=== PATIENT | female | born 1945 | race Caucasian/White ===

== ENCOUNTER 2019-11-06 13:53 | Inpatient (IN) | payer MEDICARE ==
[~2019-11-06] VITALS: Ht 162.6 cm; Wt 59.9 kg
[~2019-11-06 13:53] MED LIST: AMLO5TAB9 PO; APIX5TAB PO; CARV25TA PO; DULA1.5P SQ; DULO60CA64 PO; FAMO20TA8 PO; GABA-531 PO; INSU300I3 SQ; METO25 PO; ROPI4TAB6 PO; SPIR25TA6 PO
[2019-11-06 14:39] LABS: BASOPHILS % (AUTO) 0.2 % (0.0-5.0); EOSINOPHILS % (AUTO) 0.1 % (0.0-8.0); HEMATOCRIT 48.8 % (36-48); LYMPHOCYTES % (AUTO) 7.1 % (21.0-51.0); MEAN CORPUSCULAR HEMOGLOBIN 27.1 pg (27.0-33.0); MEAN CORPUSCULAR HGB CONC 32.8 g/dL (32.0-36.0); MEAN CORPUSCULAR VOLUME 82.6 fL (79-99); NEUTROPHILS % (AUTO) 86.1 % (40.0-77.0); PLATELET COUNT (AUTO) 361 K/uL (130-400); RED BLOOD CELL COUNT(AUTO) 5.91 MIL/uL (4.00-5.50); RED CELL DISTRIBUTION WIDTH 18.3 % (11.0-15.5); WHITE BLOOD COUNT (AUTO) 17.5 K/uL (4.8-10.8)
[2019-11-06 14:49] LABS: INR 0.98 (0.85-1.15); PARTIAL THROMBOPLASTIN TIME 26.7 SEC (26.3-35.5); PROTHROMBIN TIME 10.3 SEC (9.6-11.6)
[2019-11-06 14:54] LABS: ALBUMIN 2.7 g/dL (3.5-5.0); BILIRUBIN,DIRECT 0.1 mg/dL (0.0-0.3); BILIRUBIN,TOTAL 0.6 mg/dL (0.2-1.0); CREATININE 2.3 mg/dL (0.5-1.5); POTASSIUM 5.5 mmol/L (3.5-5.1); TOTAL PROTEIN, SERUM 6.9 g/dL (6.0-8.3)
[2019-11-06] MEDS ORDERED: CEFTRIAXONE SODIUM 1 GM IV SCH (18:15)
[2019-11-06] MEDS ORDERED: ONDANSETRON HCL 4 MG/2 ML VIAL IV PRN (18:15)
[2019-11-06] MEDS: HEPARIN SODIUM 5000UNIT/ML 1ML VIAL SQ SCH (18:15)
[2019-11-06] MEDS ORDERED: HYDRALAZINE HCL 20 MG/ML VIAL IV PRN (18:15)
[2019-11-06] MEDS ORDERED: SODIUM POLYSTYRENE SULFONATE 15 GM/60 ML ML PO SCH (18:15)
[2019-11-06] MEDS ORDERED: FAMOTIDINE/PF 20 MG/2 ML VIAL IV SCH (21:00)
[2019-11-06] MEDS ORDERED: LORAZEPAM 2 MG/ML 1 ML VIAL ONE (21:18)
[2019-11-07] VITALS (7 sets, daily range): BP systolic 103–135; BP diastolic 43–79
[2019-11-07 00:35] LABS: APPEARANCE,URINE Turbid (CLEAR); BILIRUBIN,URINE Negative (NEGATIVE); COLOR,URINE Yellow (YELLOW); GLUCOSE, URINE (UA) Negative (NEGATIVE); KETONES,URINE Trace mg/dL (NEGATIVE); LEUKOCYTE ESTERASE ,URINE Moderate (NEGATIVE); NITRATE,URINE Negative (NEGATIVE); OCCULT BLOOD,URINE Moderate (NEGATIVE); PROTEIN,URINE POS 2+ mg/dL (NEGATIVE); UROBILINOGEN,URINE 0.2 mg/dL (0.2-1.0)
[2019-11-07 00:46] LABS: BACTERIA,URINE Few /HPF (None Seen); RBC,URINE 51-100 /HPF (0-1); SQUAMOUS EPITHELIAL CELL,UR Few /HPF (0-2); WBC,URINE Full Field /HPF (0-1); YEAST,URINE BUDDING Moderate /HPF (None Seen)
[2019-11-07] MEDS: MEROPENEM 500 MG VIAL IV SCH ×3 (00:46→17:26)
[2019-11-07] MEDS: SODIUM CHLORIDE 0.9% 1000ML 1,000 ML IV SCH ×3 (00:46→20:55)
[2019-11-07] MEDS ORDERED: GABA-533 PO (04:34)
[2019-11-07] MEDS ORDERED: B CO1CAP5 PO (04:34)
[2019-11-07] MEDS ORDERED: ONDA4TAB4 PO (04:34)
[2019-11-07] MEDS ORDERED: TYL3B PO (04:34)
[2019-11-07] MEDS ORDERED: ATOR10 PO (04:34)
[2019-11-07] MEDS: HEPARIN SODIUM 5000UNIT/ML 1ML VIAL SQ SCH (05:35)
[2019-11-07 05:48] LABS: BASOPHILS % (AUTO) 0.4 % (0.0-5.0); EOSINOPHILS % (AUTO) 1.3 % (0.0-8.0); HEMATOCRIT 46.8 % (36-48); MEAN CORPUSCULAR HEMOGLOBIN 26.9 pg (27.0-33.0); MEAN CORPUSCULAR HGB CONC 32.3 g/dL (32.0-36.0); MEAN CORPUSCULAR VOLUME 83.4 fL (79-99); MONOCYTES % (AUTO) 7.2 % (3.0-13.0); NEUTROPHILS % (AUTO) 76.4 % (40.0-77.0); PLATELET COUNT (AUTO) 262 K/uL (130-400); RED BLOOD CELL COUNT(AUTO) 5.61 MIL/uL (4.00-5.50); RED CELL DISTRIBUTION WIDTH 18.3 % (11.0-15.5); WHITE BLOOD COUNT (AUTO) 11.2 K/uL (4.8-10.8)
[2019-11-07 06:26] LABS: ALBUMIN 2.4 g/dL (3.5-5.0); BILIRUBIN,TOTAL 0.4 mg/dL (0.2-1.0); CREATININE 2.3 mg/dL (0.5-1.5); POTASSIUM 4.6 mmol/L (3.5-5.1); TOTAL PROTEIN, SERUM 6.8 g/dL (6.0-8.3)
--- NOTE | 2019-11-07 08:28 | NUR ---
APS - OPEN CASE Sw recd call from Eugene Hill, [phone], APS casewker for pt. Per APS, they had 2 reports called in on pt related to wound and colostomy care not being done and pt's new dx of dementia. APS reports pt lives alone and has provider and HH services thru [facility] in [place]. Eugene has spoke to pt's HH nurse Thierry Arnett and was updated on home situation. Per nurse, pt has been refusing wound care and colostomy care because pt stated it was too painful when done. Nurse reported that it had been twice prior to admission as pt allowed. HH nurse also reported that pt was not taking medication correctly or at all. Per APS, iJ is provider and APS has not made contact with her as of yet. At this time APS is aware that pt has daughter in [place] named Yuliana but do not have any other information. gave APS name and # of friend Jez, who may possibly be able to help with contacting daughter. APS to f/u with provider and friend and recontact SW or CM with any information found. APS requesting updates on DCP. Sw to follow nd assist as needed
--- NOTE | 2019-11-07 08:40 | NUR ---
[facility] consult Patient assessed as ordered. Colostomy bag intact. Patient has rash to perineum, buttocks, and thighs as well. [facility] recommendations submitted. Addendum: 11/07/19 at 0959 by PAXTON GOMEZ RN/ Amended: Links added.
[2019-11-07] MEDS: FAMOTIDINE/PF 20 MG/2 ML VIAL IV SCH (10:29)
--- NOTE | 2019-11-07 11:26 | NUR ---
DYSPHAGIA EVAL COMPLETED. -S/S OF ASPIRATION. RECOMMEND MECHANICAL SOFT/CHOPPED, THIN LIQUIDS; PILLS WHOLE WITH LIQUIDS. Addendum: 11/07/19 at 1127 by CONRADO LITTLE, [facility] [[email or web address] ST Amended: Links added.
[2019-11-07] MEDS: GABAPENTIN 100 MG CAPSULE PO SCH ×2 (17:26→20:11)
--- NOTE | 2019-11-07 17:37 | NUR ---
CM NOTE PATIENT SEEMS DROWSY AT THE MOMENT. FROM PREVIOUS ADMISSION, PATIENT LIVES ALONE, HAS PROVIDER FOR 3 HR DAILY, HAS [facility], ELECTRIC SCOOTER, WLK, CANE, SC, AND O2 CONCENTRATION THAT IS NOT IN USE AT THE MOMENT. SS AWARE OF APS OPEN CASE. PATIENT HAS DECLINED SNF BUT PER ED REPORTS, PATIENT NOT PROPERLY CARING FOR COLOSTOMY AT HOME. PER [facility], PATIENT DECLINES WOUND CARE AND COLOSTOMY CARE BECAUSE OF PAIN ISSUES. PATIENT DECLINES SNF PER LAST ADMISSION AND HAS EXPRESSED TO NURSING STAFF THAT SHE WANTS TO RETURN HOME. PENDING TO CALL DAUGHTER THAT IS OUT OF TOWN FOR ASSISTANCE.
[2019-11-07] MEDS: APIXABAN 5 MG TABLET PO SCH (20:10)
[2019-11-07] MEDS: METOPROLOL TARTRATE 25 MG TAB PO SCH (20:10)
[2019-11-07] MEDS: ATORVASTATIN CALCIUM 20 MG TABLET PO SCH (20:10)
[2019-11-07] MEDS ORDERED: CARVEDILOL 25 MG TABLET PO SCH (21:00)
[2019-11-08] MEDS: MEROPENEM 500 MG VIAL IV SCH ×3 (02:22→17:48)
[2019-11-08 03:13] VITALS: BP 104/52
[2019-11-08 05:02] LABS: BASOPHILS % (AUTO) 0.3 % (0.0-5.0); EOSINOPHILS % (AUTO) 1.1 % (0.0-8.0); HEMATOCRIT 40.3 % (36-48); LYMPHOCYTES % (AUTO) 15.2 % (21.0-51.0); MEAN CORPUSCULAR VOLUME 84.3 fL (79-99); MONOCYTES % (AUTO) 7.7 % (3.0-13.0); NEUTROPHILS % (AUTO) 75.2 % (40.0-77.0); PLATELET COUNT (AUTO) 252 K/uL (130-400); RED BLOOD CELL COUNT(AUTO) 4.78 MIL/uL (4.00-5.50); RED CELL DISTRIBUTION WIDTH 17.4 % (11.0-15.5); WHITE BLOOD COUNT (AUTO) 10.3 K/uL (4.8-10.8)
[2019-11-08 05:25] LABS: ALBUMIN 2.1 g/dL (3.5-5.0); BILIRUBIN,TOTAL 0.3 mg/dL (0.2-1.0); CREATININE 1.8 mg/dL (0.5-1.5); POTASSIUM 4.1 mmol/L (3.5-5.1); TOTAL PROTEIN, SERUM 5.3 g/dL (6.0-8.3)
[2019-11-08 08:00] VITALS: BP 106/50
[2019-11-08] MEDS: ROPINIROLE HCL 1 MG TABLET PO SCH (11:43)
[2019-11-08] MEDS: METOPROLOL TARTRATE 25 MG TAB PO SCH ×2 (11:43→19:36)
[2019-11-08] MEDS: AMLODIPINE BESYLATE 5 MG TAB PO SCH (11:43)
[2019-11-08] MEDS: GABAPENTIN 100 MG CAPSULE PO SCH ×3 (11:43→19:36)
[2019-11-08] MEDS: FAMOTIDINE/PF 20 MG/2 ML VIAL IV SCH (11:44)
[2019-11-08] MEDS: DULOXETINE HCL 30 MG CAP PO SCH (11:44)
[2019-11-08] MEDS: SPIRONOLACTONE 25 MG TAB PO SCH (11:44)
[2019-11-08] MEDS: APIXABAN 5 MG TABLET PO SCH ×2 (11:47→19:36)
[2019-11-08 12:00] VITALS: BP 115/65
--- NOTE | 2019-11-08 12:50 | NUR ---
Notified Dr. Simmons in person regarding consult for nephrology. Labs reviewed, Dr. 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 Notified Dr. Sexton of recommendation.
--- NOTE | 2019-11-08 14:11 | NUR ---
Called Dr. Attila Bustos for wound care consult for possible debridement. Per office voicemail, prompted to contact [phone] to notify of possible surgical consult. Called number, no answer. Unable to leave message on voicemail as full.
[2019-11-08] MEDS: SODIUM CHLORIDE 0.9% 1000ML 1,000 ML IV SCH (14:59)
[2019-11-08 15:25] VITALS: BP 117/77
--- NOTE | 2019-11-08 17:31 | NUR ---
CM NOTE PER DR. BRAR, WOULD RECOMMEND LONG-TERM CARE FOR PATIENT. PER MD, SPOKE WITH DAUGHTER IN [facility] AND AGREED TO PLACEMENT. PER MD, MIGHT HAVING DEMENTIA AND UNABLE TO MAKE DECISION FOR HERSELF. PENDING CARL
--- NOTE | 2019-11-08 17:45 | NUR ---
CM NOTE PATIENT SEEMS DROWSY AT THE MOMENT. FROM PREVIOUS ADMISSION, PATIENT LIVES ALONE, HAS PROVIDER FOR 3 HR DAILY, HAS [facility], ELECTRIC SCOOTER, WLK, CANE, SC, AND O2 CONCENTRATION THAT IS NOT IN USE AT THE MOMENT. SS AWARE OF APS OPEN CASE. PATIENT HAS DECLINED SNF BUT PER ED REPORTS, PATIENT NOT PROPERLY CARING FOR COLOSTOMY AT HOME. PER [facility] , PATIENT DECLINES WOUND CARE AND COLOSTOMY CARE BECAUSE OF PAIN ISSUES. PATIENT DECLINES SNF PER LAST ADMISSION AND HAS EXPRESSED TO NURSING STAFF THAT SHE WANTS TO RETURN HOME. PENDING TO CALL DAUGHTER THAT IS OUT OF TOWN FOR ASSISTANCE. Addendum: 11/08/19 at 1745 by JORDEN TOLBERT RN CM Amended: Links added.
[2019-11-08] MEDS: ACETAMINOPHEN 325 MG TAB PO PRN (19:35)
[2019-11-08] MEDS: ATORVASTATIN CALCIUM 20 MG TABLET PO SCH (19:36)
[2019-11-08 21:17] VITALS: BP 123/76
[2019-11-09 00:41] VITALS: BP 103/52
[2019-11-09] MEDS: MEROPENEM 500 MG VIAL IV SCH ×3 (02:25→18:37)
[2019-11-09] MEDS: SODIUM CHLORIDE 0.9% 1000ML 1,000 ML IV SCH ×2 (02:25→11:14)
[2019-11-09] MEDS: NYSTATIN 15 GM POWDER TP SCH (05:25)
[2019-11-09 05:52] VITALS: BP 101/50
[2019-11-09 06:09] LABS: BASOPHILS % (AUTO) 0.5 % (0.0-5.0); EOSINOPHILS % (AUTO) 5.4 % (0.0-8.0); LYMPHOCYTES % (AUTO) 19.1 % (21.0-51.0); MEAN CORPUSCULAR HGB CONC 31.7 g/dL (32.0-36.0); MEAN CORPUSCULAR VOLUME 85.1 fL (79-99); MONOCYTES % (AUTO) 7.4 % (3.0-13.0); NEUTROPHILS % (AUTO) 67.3 % (40.0-77.0); PLATELET COUNT (AUTO) 183 K/uL (130-400); RED BLOOD CELL COUNT(AUTO) 4.23 MIL/uL (4.00-5.50); RED CELL DISTRIBUTION WIDTH 17.5 % (11.0-15.5); WHITE BLOOD COUNT (AUTO) 6.5 K/uL (4.8-10.8)
[2019-11-09 06:43] LABS: ALBUMIN 1.9 g/dL (3.5-5.0); BILIRUBIN,TOTAL 0.3 mg/dL (0.2-1.0); CREATININE 1.5 mg/dL (0.5-1.5); POTASSIUM 3.7 mmol/L (3.5-5.1); TOTAL PROTEIN, SERUM 4.7 g/dL (6.0-8.3)
[2019-11-09 07:30] VITALS: BP 108/58
[2019-11-09] MEDS: SPIRONOLACTONE 25 MG TAB PO SCH (09:00)
[2019-11-09] MEDS: AMLODIPINE BESYLATE 5 MG TAB PO SCH (09:00)
[2019-11-09 11:00] VITALS: BP_SYST 107; BP_SYST 115; BP_DIAS 45; BP_DIAS 51
[2019-11-09] MEDS: METOPROLOL TARTRATE 25 MG TAB PO SCH ×2 (11:00→20:56)
[2019-11-09] MEDS: APIXABAN 5 MG TABLET PO SCH ×2 (11:00→20:57)
[2019-11-09] MEDS: GABAPENTIN 100 MG CAPSULE PO SCH ×3 (11:09→20:56)
[2019-11-09] MEDS: ROPINIROLE HCL 1 MG TABLET PO SCH (11:11)
[2019-11-09] MEDS: DULOXETINE HCL 30 MG CAP PO SCH (11:11)
[2019-11-09] MEDS: FAMOTIDINE/PF 20 MG/2 ML VIAL IV SCH (11:14)
[2019-11-09 16:00] VITALS: BP 105/46
--- NOTE | 2019-11-09 19:11 | NUR ---
cm note met with patient and discussed option snf level of care ,due to she lives alone, and multiple needs. pt states she is not willing to go to snf, states she is fine at home. she can ask her provider to come in more hours to assist. and states she has all her equipment at home. informed her that her care requires more care than she can do at home ostomy, care, and there is concern for her safety at home. states she does not want to go to snf, does not feel she needs it. will continue to follow pt.
[2019-11-09 20:25] VITALS: BP 120/54
[2019-11-09] MEDS: ATORVASTATIN CALCIUM 20 MG TABLET PO SCH (20:57)
[2019-11-10] VITALS (7 sets, daily range): BP systolic 100–141; BP diastolic 43–66
--- NOTE | 2019-11-10 02:00 | NUR ---
patient refuses to take merem antibiotic because she claims "it makes her sick" and makes her vomit. she will speak to the doctor about it in the am.
[2019-11-10] MEDS: MEROPENEM 500 MG VIAL IV SCH ×4 (02:11→18:15)
[2019-11-10] MEDS: NYSTATIN 15 GM POWDER TP SCH (04:29)
[2019-11-10] MEDS: SODIUM CHLORIDE 0.9% 1000ML 1,000 ML IV SCH ×2 (06:03→16:04)
[2019-11-10] MEDS: FAMOTIDINE/PF 20 MG/2 ML VIAL IV SCH (10:36)
[2019-11-10] MEDS: APIXABAN 5 MG TABLET PO SCH ×2 (10:36→20:18)
[2019-11-10] MEDS: AMLODIPINE BESYLATE 5 MG TAB PO SCH (10:36)
[2019-11-10] MEDS: SPIRONOLACTONE 25 MG TAB PO SCH (10:36)
[2019-11-10] MEDS: METOPROLOL TARTRATE 25 MG TAB PO SCH ×2 (10:36→20:18)
[2019-11-10] MEDS: DULOXETINE HCL 30 MG CAP PO SCH (10:36)
[2019-11-10] MEDS: ROPINIROLE HCL 1 MG TABLET PO SCH ×2 (10:37→10:38)
[2019-11-10] MEDS: GABAPENTIN 100 MG CAPSULE PO SCH ×3 (10:50→20:18)
--- NOTE | 2019-11-10 12:01 | NUR ---
NOTIFIED OF CONSULT, STATES HE WILL SEE PT. TODAY
--- NOTE | 2019-11-10 13:40 | NUR ---
CM NOTE PER DR. CAMPO, PATIENT AGREEABLE TO [facility]. PER PATIENT, HAS BEEN AT [facility] BEFORE AND THAT IS WHERE SHE WANTS TO GO. CARL VERBAL CONSENT GIVEN, CLINICALS AND [facility] FAXED AND RECEIVED. PENDING TO BE EVALUATED FOR WOUND VAC.
--- NOTE | 2019-11-10 13:58 | NUR ---
WITH WOUND CARE IN TO SEE PT. NOW.
--- NOTE | 2019-11-10 15:16 | NUR ---
1455- patient is busy w/ Wound Care Nursing.placement of wound vac.Will attempt to see and evaluate patient for skilled Physical Therapy 11/11/2019. Addendum: 11/10/19 at 1518 by ADRIÁN VAZQUEZ, PT PT Amended: Links added.
--- NOTE | 2019-11-10 15:30 | NUR ---
WOUND VAC PLACED BY WOUND CARE STAFF. GOOD SEAL AT 125MMHG.
--- NOTE | 2019-11-10 15:35 | NUR ---
[facility] consult Wound vac applied using black foam in wound bed and 125mmhg continuous suction. Good seal obtained. Patient tolerated application without adverse effects or complaints.
--- NOTE | 2019-11-10 16:30 | NUR ---
AGITATED, TRYING TO GET OUT OF BED , . LEG OVER BED RAIL, PULLING ON IV TUBING, TRYING TO PULL ON WOUND VAC. TALKING TO HERSELF AND STATES THERE ARE MEN IN HER ROOM.
[2019-11-10] MEDS ORDERED: HALOPERIDOL LACTATE 5 MG/ML VIAL IM PRN (17:00)
[2019-11-10] MEDS ORDERED: HALOPERIDOL DECANOATE 100 MG/ML ML IM PRN (17:00)
[2019-11-10] MEDS: ATORVASTATIN CALCIUM 20 MG TABLET PO SCH (20:18)
[2019-11-11] MEDS: MEROPENEM 500 MG VIAL IV SCH ×3 (02:15→18:32)
[2019-11-11] MEDS: NYSTATIN 15 GM POWDER TP SCH (03:57)
[2019-11-11 04:00] VITALS: BP 107/52
[2019-11-11 05:42] LABS: CREATININE 1.1 mg/dL (0.5-1.5); POTASSIUM 3.2 mmol/L (3.5-5.1)
[2019-11-11 05:43] LABS: HEMATOCRIT 36.8 % (36-48); MEAN CORPUSCULAR HEMOGLOBIN 26.8 pg (27.0-33.0); MEAN CORPUSCULAR VOLUME 86.4 fL (79-99); PLATELET COUNT (AUTO) 193 K/uL (130-400); RED BLOOD CELL COUNT(AUTO) 4.26 MIL/uL (4.00-5.50); RED CELL DISTRIBUTION WIDTH 16.9 % (11.0-15.5)
[2019-11-11 05:55] LABS: EOSINOPHILS % (MANUAL) 4 % (1-6); LYMPHOCYTES % (MANUAL) 8 % (22-44); MAN.DIFF COMMENT-IMPRESSION MANUAL DIFFERENTIAL; MONOCYTES % (MANUAL) 4 % (2-9); PLATELET MORPHOLOGY COMMENT ADEQUATE; SEGMENTED NEUTROPHILS % 84 % (40-70)
[2019-11-11] MEDS: ACETAMINOPHEN 325 MG TAB PO PRN (06:45)
[2019-11-11 08:00] VITALS: BP 126/49
--- NOTE | 2019-11-11 08:00 | NUR ---
SITTER IN PLACE. 1:1 PT. CONFUSED , AGITATED
[2019-11-11] MEDS: AMLODIPINE BESYLATE 5 MG TAB PO SCH (09:49)
[2019-11-11] MEDS: ROPINIROLE HCL 1 MG TABLET PO SCH (09:49)
[2019-11-11] MEDS: APIXABAN 5 MG TABLET PO SCH ×2 (09:50→20:28)
[2019-11-11] MEDS: METOPROLOL TARTRATE 25 MG TAB PO SCH ×2 (09:50→09:51)
[2019-11-11] MEDS: FAMOTIDINE/PF 20 MG/2 ML VIAL IV SCH (09:51)
[2019-11-11] MEDS: DULOXETINE HCL 30 MG CAP PO SCH (09:52)
[2019-11-11] MEDS: SPIRONOLACTONE 25 MG TAB PO SCH (09:52)
[2019-11-11] MEDS: GABAPENTIN 100 MG CAPSULE PO SCH ×3 (09:59→20:29)
[2019-11-11 12:00] VITALS: BP 122/56
--- NOTE | 2019-11-11 14:00 | NUR ---
ILEOILEOSTOMY CARE RENDERED. NEW BAG APPLIED. ABD. AND TIFFANY AREA WITH EXCORIATION
--- NOTE | 2019-11-11 15:29 | NUR ---
RDSCREEN - LOS X 5 Pt admitted for Leukocytosis, Dehydration. Pt tolerating GI Soft [place] diet, no report of GI distress, Fair PO intake (50-75%) as per Pt and OPERATIONS STAFF SPECIALIST SECURITY. Pt all of breakfast, half lunch. Sitter present at time of visit. Pt with Coccyx wound x 2 with wound vac. Recommend to add Yao BID, 500mg Vitamin C, 220mg ZnSO4, 30mL ProMod TID. Pt LBM 11/10/19. Pt monitored labs: K 3.2, GFR 51, Ca 7.9, Alb 1.9. RD to continue to monitor. Please notify as additional nutrition concern arise. Thank you. Addendum: 11/11/19 at [address] Amended: Links added.
[2019-11-11 15:36] VITALS: BP 113/45
--- NOTE | 2019-11-11 17:11 | NUR ---
CM NOTE PENDING PT NOTES FAXED AND RECEIVED AT [facility], PENDING AUTHORIZATION.
[2019-11-11 19:00] VITALS: BP 135/52
[2019-11-11] MEDS: ATORVASTATIN CALCIUM 20 MG TABLET PO SCH (20:29)
[2019-11-11] MEDS ORDERED: POTASSIUM CHLORIDE 10% ELIXIR 20 MEQ/15 ML UDCUP PO PRN (22:30)
[2019-11-11] MEDS ORDERED: LIDOCAINE HCL-MPF 1% 2ML VIAL IJ PRN (22:30)
[2019-11-11] MEDS ORDERED: POTASSIUM CHLORIDE 20MEQ/100ML 100 ML IV PRN (22:30)
[2019-11-12] VITALS: BP 111/60
[2019-11-12] MEDS: MEROPENEM 500 MG VIAL IV SCH ×3 (02:18→17:42)
[2019-11-12 04:00] VITALS: BP 122/68
[2019-11-12] MEDS: NYSTATIN 15 GM POWDER TP SCH (05:08)
[2019-11-12] MEDS: SODIUM CHLORIDE 0.9% 1000ML 1,000 ML IV SCH (05:08)
[2019-11-12 06:18] LABS: MEAN CORPUSCULAR HEMOGLOBIN 27.3 pg (27.0-33.0); MEAN CORPUSCULAR HGB CONC 32.5 g/dL (32.0-36.0); MEAN CORPUSCULAR VOLUME 84.1 fL (79-99); PLATELET COUNT (AUTO) 173 K/uL (130-400); RED BLOOD CELL COUNT(AUTO) 4.28 MIL/uL (4.00-5.50); RED CELL DISTRIBUTION WIDTH 16.7 % (11.0-15.5); WHITE BLOOD COUNT (AUTO) 4.7 K/uL (4.8-10.8)
[2019-11-12 06:27] LABS: MAGNESIUM 1.2 mg/dL (1.80-2.40); POTASSIUM 3.8 mmol/L (3.5-5.1)
[2019-11-12 07:30] VITALS: BP 136/46
[2019-11-12 08:49] LABS: BAND NEUTROPHILS % (MANUAL) 1 % (0-2); BASOPHILS % (MANUAL) 1 % (0-2); EOSINOPHILS % (MANUAL) 2 % (1-6); LYMPHOCYTES % (MANUAL) 20 % (22-44); MONOCYTES % (MANUAL) 5 % (2-9); SEGMENTED NEUTROPHILS % 71 % (40-70)
[2019-11-12 08:50] LABS: MAN.DIFF COMMENT-IMPRESSION MANUAL DIFFERENTIAL; PLATELET MORPHOLOGY COMMENT ADEQUATE
[2019-11-12] MEDS: SPIRONOLACTONE 25 MG TAB PO SCH (09:00)
[2019-11-12] MEDS: DULOXETINE HCL 30 MG CAP PO SCH (11:03)
[2019-11-12] MEDS: METOPROLOL TARTRATE 25 MG TAB PO SCH ×2 (11:03→21:49)
[2019-11-12] MEDS: GABAPENTIN 100 MG CAPSULE PO SCH ×3 (11:03→21:49)
[2019-11-12] MEDS: APIXABAN 5 MG TABLET PO SCH ×2 (11:03→21:49)
[2019-11-12] MEDS: AMLODIPINE BESYLATE 5 MG TAB PO SCH (11:03)
[2019-11-12] MEDS: FAMOTIDINE/PF 20 MG/2 ML VIAL IV SCH (11:04)
[2019-11-12 11:19] VITALS: BP 140/59
[2019-11-12] MEDS: MAGNESIUM 2GM PREMIX 50ML 50 ML IV SCH (14:48)
[2019-11-12 15:49] VITALS: BP 132/48
--- NOTE | 2019-11-12 16:00 | NUR ---
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 Picture taken per facility protocol, wound measuring 2.2 cm length x 0.6 cm width x 1 cm depth. Patient tolerated wound cleansing and vac placement without complaint of pain. Suction set to 125 mmHg continuous. Disposed 10 mL of serosanguinous drainage from wound vac.
[2019-11-12 20:00] VITALS: BP 145/61
[2019-11-12] MEDS ORDERED: TEMAZEPAM 15 MG CAPSULE PO PRN (20:45)
[2019-11-12] MEDS: ATORVASTATIN CALCIUM 20 MG TABLET PO SCH (21:49)
[2019-11-12] MEDS: TEMAZEPAM 15 MG CAPSULE PO PRN (21:50)
[2019-11-13] VITALS: BP 113/43
[2019-11-13] MEDS: MEROPENEM 500 MG VIAL IV SCH ×3 (03:26→17:11)
[2019-11-13] MEDS: SODIUM CHLORIDE 0.9% 1000ML 1,000 ML IV SCH ×2 (03:27→13:41)
[2019-11-13 04:00] VITALS: BP 110/46
[2019-11-13] MEDS: NYSTATIN 15 GM POWDER TP SCH (05:00)
[2019-11-13] MEDS: NYSTATIN 15 GM POWDER TP PRN (05:45)
[2019-11-13 06:12] LABS: MAGNESIUM 1.8 mg/dL (1.80-2.40); POTASSIUM 3.3 mmol/L (3.5-5.1)
--- NOTE | 2019-11-13 06:26 | NUR ---
Paged Dr. Mendiola regarding cuevas catheter leaking and not in the correct place.Cuevas was removed.
[2019-11-13] MEDS: POTASSIUM CHLORIDE 20 MEQ ERTAB PO PRN ×3 (06:47→13:40)
[2019-11-13 07:45] VITALS: BP 108/61
[2019-11-13] MEDS: SPIRONOLACTONE 25 MG TAB PO SCH (07:55)
[2019-11-13] MEDS: AMLODIPINE BESYLATE 5 MG TAB PO SCH (09:00)
[2019-11-13] MEDS: METOPROLOL TARTRATE 25 MG TAB PO SCH ×2 (09:00→22:00)
[2019-11-13] MEDS: DULOXETINE HCL 30 MG CAP PO SCH (09:49)
[2019-11-13] MEDS: FAMOTIDINE/PF 20 MG/2 ML VIAL IV SCH (09:49)
[2019-11-13] MEDS: MAGNESIUM 2GM PREMIX 50ML 50 ML IV SCH (09:49)
[2019-11-13] MEDS: APIXABAN 5 MG TABLET PO SCH ×2 (09:50→22:00)
[2019-11-13] MEDS: ROPINIROLE HCL 1 MG TABLET PO SCH (09:51)
--- NOTE | 2019-11-13 09:56 | NUR ---
APS F?U Sw spoke to JOSE EDUARDO. Referral sent to Kristen and pending insurance auth. CM has not made contact with daughter and per Kristen, pt will have $160 co pay. Nata called Alex [phone] at [facility] and informed of above. Alex to staff case with code enforcement supervisor and see if they can cover co pay for pt. Per APS, pt no safe at home even with provider and HH following. Alex to try and visit pt today or tomorrow. Alex to recontact with decision regarding co pay. JOSE EDUARDO updated
[2019-11-13] MEDS: GABAPENTIN 100 MG CAPSULE PO SCH ×3 (10:04→21:59)
[2019-11-13 11:32] VITALS: BP 111/51
--- NOTE | 2019-11-13 15:56 | NUR ---
CM NOTE PER KEANU DORMAN CELLULAR TOWER CLIMBER, FACILITY DECLINING PATIENT DUE TO PENDING COPAYS AND PAYMENT FROM LAST SNF ADMISSION. PATIENT IS STILL CONFUSED AND UNABLE TO MAKE DECISION ON SNF. DAUGHTER NORM CALLED, NO ANSWER AND UNABLE TO LEAVE VOICEMAIL. CM TO FOLLOW UP FOR DC PLAN.
[2019-11-13 16:00] VITALS: BP 100/52
--- NOTE | 2019-11-13 16:11 | NUR ---
RD FOLLOW UP Pt tolerating GI Soft/[place] diet with no GI distress, PO intake at 100% at time of visit. Pt refusal of ProMod and Yao and does not want to try any other nutritional supplements, would just rather eat food. Zackd and Yao discontinued. Pt pending transfer. LBM 11/12/19. Pt monitored labs: K 3.3, GFR 57, BG 131, Ca 7.6, Alb 1.9. RD to continue to monitor. Please notify RD as additional nutrition concerns arise. Thank you. Addendum: 11/13/19 at [address] Amended: Links added.
[2019-11-13] MEDS: ACETAMINOPHEN 325 MG TAB PO PRN ×2 (17:12→23:31)
[2019-11-13 20:00] VITALS: BP 125/65
[2019-11-13] MEDS: ATORVASTATIN CALCIUM 20 MG TABLET PO SCH (22:00)
[2019-11-14] VITALS: BP 109/58
[2019-11-14] MEDS: MEROPENEM 500 MG VIAL IV SCH ×3 (02:48→18:41)
[2019-11-14] MEDS: SODIUM CHLORIDE 0.9% 1000ML 1,000 ML IV SCH ×2 (03:35→15:30)
[2019-11-14] MEDS: NYSTATIN 15 GM POWDER TP SCH (03:37)
[2019-11-14 04:00] VITALS: BP 117/53
[2019-11-14 08:00] VITALS: BP 124/68
[2019-11-14] MEDS: APIXABAN 5 MG TABLET PO SCH ×2 (09:48→21:07)
[2019-11-14] MEDS: DULOXETINE HCL 30 MG CAP PO SCH (09:49)
[2019-11-14] MEDS: METOPROLOL TARTRATE 25 MG TAB PO SCH ×2 (09:49→21:08)
[2019-11-14] MEDS: GABAPENTIN 100 MG CAPSULE PO SCH ×3 (09:49→21:08)
[2019-11-14] MEDS: SPIRONOLACTONE 25 MG TAB PO SCH (09:49)
[2019-11-14] MEDS: AMLODIPINE BESYLATE 5 MG TAB PO SCH (09:49)
[2019-11-14] MEDS: ROPINIROLE HCL 1 MG TABLET PO SCH (09:50)
[2019-11-14] MEDS: FAMOTIDINE/PF 20 MG/2 ML VIAL IV SCH (09:50)
--- NOTE | 2019-11-14 10:00 | NUR ---
CM NOTE VOICEMAIL LEFT FROM NURSING STAFF LAST NIGHT REGARDING CALL BACK FROM DAUGHTERNORM. PER DAUGHTER, PHONE NUMBER GIVEN ([phone]) AND WILL BE AVAILABLE TO TALK ON PHONE FROM 12PM-2PM. PACKING ROOM SUPERVISOR, JONE CALLED AND RELAYED MESSAGE. ALSO REPORTED THAT [facility] DECLINED PATIENT BUT UNSAFE TO BE DISCHARGED HOME AGAIN. PER JONE WITH PACKING ROOM SUPERVISOR, WILL REACH OUT TO DAUGHTER AND APS FOR DC PLAN ASSISTANCE.
--- NOTE | 2019-11-14 10:38 | NUR ---
APS f/u Nata contacted by JOSE EDUARDO. Pt's nurse is reporting that pt's daughter Yuliana Ahumada [phone] called yesterday to f/u on pt. DAughter states she can be reached today between 12 and 2 at this #. JOSE EDUARDO also reports that [facility] is denying pt related to money owed to Secondary insurance. Nata contacted Alex GUTIERREZ casewker. Alex states he just visited with pt and discussed dcp. Pt is open to going to [place] to be closer to daughter. Alex to talk to daughter and discuss if this is option. APS might be able to assist with relocating pt if daughter agrees. Alex to try and contact daughter today between 12 and 2. Alex to recontact after talking to daughter. Jose Eduardo aware
[2019-11-14] MEDS: ACETAMINOPHEN 325 MG TAB PO PRN ×2 (11:23→21:10)
--- NOTE | 2019-11-14 11:47 | NUR ---
WOUND VAC WOUND VAC CHANGED TODAY. ASSESSED BY DR. EFRRARO FROM [facility]. PATIENT TOLERATED PROCEDURE WITHOUT INCIDENT. Addendum: 11/14/19 at 1149 by ELLIE CASTILLO RN RN WOUND VAC SETTINGS AT 125mmHg, CANISTER REPLACED.
[2019-11-14 12:00] VITALS: BP 131/49
--- NOTE | 2019-11-14 14:08 | NUR ---
DAUGHTER NORM MOLINA [phone] Gwendolyn spoke to daughter who states she spoke to Alex akhtar at length earlier today regarding dcp for pt. Daughter states she wants pt in [place] with her and is talking to NHs in [place] to see if pt could go there. Daughter states pt would be private pay, and NHs are more than pt's monthly income. SW educated daughter on private care homes and advised see look into those as well. Daughter plans to come to [place] tomorrow and see and discuss dc plan. GWENDOLYN provided # for JOSE EDUARDO [place] for contact over weekend. JOSE EDUARDO Shea aware of above
[2019-11-14 16:00] VITALS: BP 149/62
[2019-11-14 20:00] VITALS: BP 111/62
--- NOTE | 2019-11-14 21:00 | NUR ---
Re: PICC line Dressing Dressing to PICC line done aseptically as per protocol, puncture site noted slightly red, no drainage, procedure well tolerated by pt. Addendum: 11/15/19 at 0553 by KAITLIN BROWN RN RN Amended: Links added.
[2019-11-14] MEDS: ATORVASTATIN CALCIUM 20 MG TABLET PO SCH (21:08)
[2019-11-15] VITALS (7 sets, daily range): BP systolic 114–149; BP diastolic 40–95
[2019-11-15] MEDS: MEROPENEM 500 MG VIAL IV SCH ×3 (02:13→17:45)
[2019-11-15] MEDS: SODIUM CHLORIDE 0.9% 1000ML 1,000 ML IV SCH ×2 (02:14→16:32)
[2019-11-15] MEDS: NYSTATIN 15 GM POWDER TP SCH (07:17)
[2019-11-15] MEDS: APIXABAN 5 MG TABLET PO SCH ×2 (08:40→22:28)
[2019-11-15] MEDS: DULOXETINE HCL 30 MG CAP PO SCH (08:40)
[2019-11-15] MEDS: AMLODIPINE BESYLATE 5 MG TAB PO SCH (08:41)
[2019-11-15] MEDS: SPIRONOLACTONE 25 MG TAB PO SCH (08:41)
[2019-11-15] MEDS: ROPINIROLE HCL 1 MG TABLET PO SCH (08:41)
[2019-11-15] MEDS: FAMOTIDINE/PF 20 MG/2 ML VIAL IV SCH (08:41)
[2019-11-15] MEDS: METOPROLOL TARTRATE 25 MG TAB PO SCH ×2 (08:41→22:28)
[2019-11-15] MEDS: MEMANTINE HCL 5 MG TABLET PO SCH (08:41)
[2019-11-15] MEDS: GABAPENTIN 100 MG CAPSULE PO SCH ×3 (08:42→22:28)
[2019-11-15 09:00] LABS: HEMATOCRIT 35.4 % (36-48); MEAN CORPUSCULAR HEMOGLOBIN 27.1 pg (27.0-33.0); MEAN CORPUSCULAR HGB CONC 31.9 g/dL (32.0-36.0); MEAN CORPUSCULAR VOLUME 84.9 fL (79-99); PLATELET COUNT (AUTO) 218 K/uL (130-400); RED BLOOD CELL COUNT(AUTO) 4.17 MIL/uL (4.00-5.50); RED CELL DISTRIBUTION WIDTH 16.6 % (11.0-15.5); WHITE BLOOD COUNT (AUTO) 6.7 K/uL (4.8-10.8)
[2019-11-15 09:26] LABS: CREATININE 1.1 mg/dL (0.5-1.5); MAGNESIUM 1.4 mg/dL (1.80-2.40); POTASSIUM 3.9 mmol/L (3.5-5.1)
--- NOTE | 2019-11-15 17:08 | NUR ---
D/C PLAN CM spoke to patient's daughter named Yuliana. States patient has supplemental plan to cover SNF. CM advised daughter to give insurance information to SNF facility of choice in area where she would like to move patient. CM explained to call back CM with information of in network facility to assist with referral process. Verbalized understanding. States she is meeting with insurance sales specialist to verify information and will be speaking to facility on Sunday or Sunday. States she is considering facility in [place] [facility]. CM to follow up. Addendum: 11/15/19 at 1710 by ZAC WOOD CM Amended: Links added.
[2019-11-15] MEDS ORDERED: DEXTROSE 50%-WATER 50 ML DISP.SYRIN IV PRN (21:45)
[2019-11-15] MEDS ORDERED: GLUCAGON 1MG KIT 1 MG ML IM PRN (21:45)
[2019-11-15] MEDS: INSULIN HUMULIN R 100 UNIT/ML 3ML SQ SCH (21:45)
[2019-11-15] MEDS ORDERED: INSULIN HUMULIN R 100 UNIT/ML 3ML ONE (22:01)
[2019-11-15] MEDS: ATORVASTATIN CALCIUM 20 MG TABLET PO SCH (22:27)
[2019-11-16] MEDS: ACETAMINOPHEN 325 MG TAB PO PRN ×2 (00:03→20:22)
[2019-11-16] MEDS: MEROPENEM 500 MG VIAL IV SCH ×3 (02:10→18:12)
[2019-11-16 04:00] VITALS: BP 132/60
[2019-11-16 04:20] LABS: BASOPHILS % (AUTO) 0.8 % (0.0-5.0); EOSINOPHILS % (AUTO) 2.9 % (0.0-8.0); HEMATOCRIT 32.8 % (36-48); LYMPHOCYTES % (AUTO) 24.4 % (21.0-51.0); MEAN CORPUSCULAR HEMOGLOBIN 27.5 pg (27.0-33.0); MEAN CORPUSCULAR HGB CONC 32.6 g/dL (32.0-36.0); MEAN CORPUSCULAR VOLUME 84.3 fL (79-99); NEUTROPHILS % (AUTO) 63.3 % (40.0-77.0); PLATELET COUNT (AUTO) 208 K/uL (130-400); RED BLOOD CELL COUNT(AUTO) 3.89 MIL/uL (4.00-5.50); RED CELL DISTRIBUTION WIDTH 16.4 % (11.0-15.5); WHITE BLOOD COUNT (AUTO) 6.5 K/uL (4.8-10.8)
[2019-11-16 04:34] LABS: MAGNESIUM 1.2 mg/dL (1.80-2.40); POTASSIUM 3.7 mmol/L (3.5-5.1)
[2019-11-16] MEDS: SODIUM CHLORIDE 0.9% 1000ML 1,000 ML IV SCH ×2 (04:41→18:12)
[2019-11-16] MEDS: MAGNESIUM 2GM PREMIX 50ML 50 ML IV SCH ×2 (04:42→06:13)
[2019-11-16] MEDS: NYSTATIN 15 GM POWDER TP SCH (04:43)
[2019-11-16] MEDS: INSULIN HUMULIN R 100 UNIT/ML 3ML SQ SCH ×4 (05:25→19:45)
[2019-11-16 08:00] VITALS: BP 110/49
[2019-11-16] MEDS: DULOXETINE HCL 30 MG CAP PO SCH (10:34)
[2019-11-16] MEDS: GABAPENTIN 100 MG CAPSULE PO SCH ×3 (10:35→19:44)
[2019-11-16] MEDS: SPIRONOLACTONE 25 MG TAB PO SCH (10:35)
[2019-11-16] MEDS: METOPROLOL TARTRATE 25 MG TAB PO SCH ×2 (10:36→19:42)
[2019-11-16] MEDS: MEMANTINE HCL 5 MG TABLET PO SCH (10:36)
[2019-11-16] MEDS: APIXABAN 5 MG TABLET PO SCH ×2 (10:36→19:42)
[2019-11-16] MEDS: AMLODIPINE BESYLATE 5 MG TAB PO SCH (10:36)
[2019-11-16] MEDS: FAMOTIDINE/PF 20 MG/2 ML VIAL IV SCH (10:37)
[2019-11-16] MEDS: ROPINIROLE HCL 1 MG TABLET PO SCH (10:37)
[2019-11-16] MEDS: POTASSIUM CHLORIDE 20 MEQ ERTAB PO PRN (10:37)
[2019-11-16 12:00] VITALS: BP 132/64
[2019-11-16 16:00] VITALS: BP 128/54
[2019-11-16 19:40] VITALS: BP 135/65
[2019-11-16] MEDS: ATORVASTATIN CALCIUM 20 MG TABLET PO SCH (19:42)
[2019-11-16 23:59] VITALS: BP 114/41
[2019-11-17] MEDS: MEROPENEM 500 MG VIAL IV SCH ×3 (02:22→17:51)
[2019-11-17] MEDS: NYSTATIN 15 GM POWDER TP SCH (03:02)
[2019-11-17 03:41] VITALS: BP 124/60
[2019-11-17 03:55] LABS: CREATININE 1.1 mg/dL (0.5-1.5); MAGNESIUM 2.1 mg/dL (1.80-2.40)
[2019-11-17] MEDS: INSULIN HUMULIN R 100 UNIT/ML 3ML SQ SCH ×4 (06:54→22:30)
[2019-11-17 08:00] VITALS: BP 153/69
[2019-11-17] MEDS: SODIUM CHLORIDE 0.9% 1000ML 1,000 ML IV SCH ×2 (09:16→23:35)
[2019-11-17] MEDS: ROPINIROLE HCL 1 MG TABLET PO SCH (09:23)
[2019-11-17] MEDS: APIXABAN 5 MG TABLET PO SCH ×2 (09:23→22:22)
[2019-11-17] MEDS: GABAPENTIN 100 MG CAPSULE PO SCH ×3 (09:23→22:21)
[2019-11-17] MEDS: MEMANTINE HCL 5 MG TABLET PO SCH (09:24)
[2019-11-17] MEDS: AMLODIPINE BESYLATE 5 MG TAB PO SCH (09:24)
[2019-11-17] MEDS: SPIRONOLACTONE 25 MG TAB PO SCH (09:24)
[2019-11-17] MEDS: METOPROLOL TARTRATE 25 MG TAB PO SCH ×2 (09:24→22:22)
[2019-11-17] MEDS: FAMOTIDINE/PF 20 MG/2 ML VIAL IV SCH (09:24)
[2019-11-17] MEDS: DULOXETINE HCL 30 MG CAP PO SCH (09:24)
[2019-11-17 11:31] VITALS: BP 103/54
[2019-11-17 16:00] VITALS: BP 121/54
--- NOTE | 2019-11-17 16:41 | NUR ---
CM NOTE DAUGHTER CALLED AT [phone], NORM. NO ANSWER, VOICEMAIL LEFT REGARDING DC PLAN FOR PATIENT. CM TO FOLLOW UP ACCORDINGLY.
[2019-11-17 19:42] VITALS: BP 129/86
[2019-11-17] MEDS: ATORVASTATIN CALCIUM 20 MG TABLET PO SCH (22:21)
[2019-11-17 23:39] VITALS: BP 120/58
[2019-11-18] MEDS: MEROPENEM 500 MG VIAL IV SCH ×3 (02:56→18:19)
[2019-11-18 03:29] VITALS: BP 124/56
[2019-11-18] MEDS: NYSTATIN 15 GM POWDER TP SCH (05:41)
[2019-11-18 06:05] LABS: BASOPHILS % (AUTO) 0.4 % (0.0-5.0); EOSINOPHILS % (AUTO) 1.1 % (0.0-8.0); HEMATOCRIT 33.4 % (36-48); LYMPHOCYTES % (AUTO) 16.3 % (21.0-51.0); MEAN CORPUSCULAR HEMOGLOBIN 27.3 pg (27.0-33.0); MEAN CORPUSCULAR HGB CONC 32.3 g/dL (32.0-36.0); MEAN CORPUSCULAR VOLUME 84.6 fL (79-99); NEUTROPHILS % (AUTO) 73.8 % (40.0-77.0); PLATELET COUNT (AUTO) 220 K/uL (130-400); RED BLOOD CELL COUNT(AUTO) 3.95 MIL/uL (4.00-5.50); RED CELL DISTRIBUTION WIDTH 16.4 % (11.0-15.5); WHITE BLOOD COUNT (AUTO) 7.4 K/uL (4.8-10.8)
--- NOTE | 2019-11-18 06:10 | NUR ---
PT PULLED OUT WOUND VAC, REFUSING NEW ONE WENT INTO ROOM TO FIND PT HAD PULLED OFF WOUND VAC DRESSING. DRESSING WAS LAYING AT BEDSIDE. ATTEMPTED TO REAPPLY NEW WOUND VAC DRESSING BUT PT REFUSED EVIDENCED BY KERMIT SANCHEZ. PT ATTEMPTED TO HIT MY ARM AND STATED SHE DID NOT WANT THE WOUND VAC DRESSING ANYMORE. PT REFUSES TO SIGN REFUSAL FORM FOR WOUND VAC. WILL REPORT OFF TO AM SHIFT
[2019-11-18] MEDS: INSULIN HUMULIN R 100 UNIT/ML 3ML SQ SCH ×4 (06:55→21:00)
--- NOTE | 2019-11-18 07:30 | NUR ---
REPORT WAS INFORMED BY CONCEPCIÓN SALAS ON MORNING SHIFT REPORT THAT PT REMOVED WOUND VAC DRESSING LAST NIGHT AND REFUSED TO HAVE IT PLACED AGAIN. UPON ENTERING ROOM-THIS NURSE ASKED PT PERMISSION TO PLACE WOUND VAC TO WHICH PATIENT STATED "I GUESS". PT VERBALLY CONSENTED AND MADE AWARE OF RISKS ASSOCIATED WITH NOT HAVING WOUND VAC. PT THEN AGREED TO PLACEMENT. WILL RETURN TO PLACE
[2019-11-18 08:00] VITALS: BP 139/61
[2019-11-18] MEDS: FAMOTIDINE/PF 20 MG/2 ML VIAL IV SCH (09:16)
[2019-11-18] MEDS: MEMANTINE HCL 5 MG TABLET PO SCH (09:17)
[2019-11-18] MEDS: METOPROLOL TARTRATE 25 MG TAB PO SCH ×2 (09:17→20:27)
[2019-11-18] MEDS: APIXABAN 5 MG TABLET PO SCH ×2 (09:17→20:27)
[2019-11-18] MEDS: ROPINIROLE HCL 1 MG TABLET PO SCH (09:17)
[2019-11-18] MEDS: AMLODIPINE BESYLATE 5 MG TAB PO SCH (09:17)
[2019-11-18] MEDS: GABAPENTIN 100 MG CAPSULE PO SCH ×3 (09:17→20:27)
[2019-11-18] MEDS: SPIRONOLACTONE 25 MG TAB PO SCH (09:18)
[2019-11-18] MEDS: SODIUM CHLORIDE 0.9% 1000ML 1,000 ML IV SCH ×2 (09:18→23:35)
[2019-11-18] MEDS: DULOXETINE HCL 30 MG CAP PO SCH (09:18)
--- NOTE | 2019-11-18 09:45 | NUR ---
WOUND VAC CHANGE THIS NURSE, WITH ASSISTANCE OF BLEACH RANGE OPERATOR, ATTEMPTED TO PLACE WOUND VAC TO WHICH PT AGREED. PT WAS PUT INTO POSITION ON SIDE AND WOUND VAC DRESING CHANGE WAS STARTED. PT THEN ASKED IF SHE COULD "TAKE A BREAK" AFTER 2 MIN OR SO OF BEING ON SIDE. PT THEN ROLLED OVER ON BACK TO "REST". THIS NURSE THEN ASKED IF PT WAS READY TO TURN AGAIN TO WHICH SHE CONSENTED. FILM APPLIED TO MAJORITY OF AREA SURROUNDING SACRAL WOUND.PT THEN STATED SHE WAS TIRED AND HAD ALREADY GIVEN US "PLENTY OF TIME" TO APPLY THE WHOLE DRESSING . THIS NURSE EXPLAINED THAT THE POSITION OF THE WOUND IS TRICKY AND THE PROCESS IS TEDIOUS TO APPLY THIS SPECIFIC DRESSING. PT VISIBLY BECOMING MORE AGITATED AT THE IDEA OF HAVING DRESSING CHANGED AND HAVING TO LAY ON SIDE. PT THEN AGREED AFTER MUCH CONVINCING TO TURN TO SIDE AGAIN FOR CONTINUATION. PT THEN TURNED AND BLACK FOAM WAS CUT TO SIZE AND APPLIED INTO SACRAL WOUND. PT THEN SAID "THATS IT. NO MORE. NO MEANS NO" AND TURNED ON HER BACK ONCE AGAIN. RISKS WERE EXPLAINED TO PT REGARDING HAVING EXPOSED WOUND AND THAT WOUND VAC WAS RECOMMENDATION BY MD FOR WOUND HEALING AND CLOSURE. PT THEN STATED "IF IT WAS WORKING IT WOULDVE CLOSED ALREADY". PT STATED "ABSOLUTELY NOT" WHEN THIS NURSE ATTEMPTED TO REMOVE PARTIAL DRESSING THAT WAS PLACED. CN MADE AWARE
--- NOTE | 2019-11-18 09:53 | NUR ---
APS f/u Sw recd call from hermilo Johnson. PEr Alex, he is waiting for daughter Yuliana to give dcp, accepting NH in [place]. Daughter's only day off is Sunday, so he feels that we may know decision today or tomorrow. Alex states he will f/u with daughter in am and see what decision is.
--- NOTE | 2019-11-18 10:51 | NUR ---
[facility] SPOKE TO POLO AT [facility] WHO STATED THAT DR MARC WAS NOT IN UNTIL SUNDAY BUT DR HARRINGTON WAS AVAILABLE. EXPLAINED TO POLO THAT PT WAS REFUSING WOUND VAC PLACEMENT DESPITE SEVERAL ATTEMPTS. STATED HE WILL RELAY MESSAGE TO MD REGARDING ANY NEW ORDERS
[2019-11-18 12:00] VITALS: BP 133/76
[2019-11-18 16:00] VITALS: BP 108/45
--- NOTE | 2019-11-18 16:46 | NUR ---
SNF REFERRALS SW spoke to patient and daughter, Yuliana Cash, regarding discharge disposition. Both agreed for SNF referrals in the [facility] where daughter lives. CARL obtained via phone from daughter. GWENDOLYN and Dr. Sutton were witnesses. CARL and choice form placed in chart. Referral sent to following 3 facilities. Pending acceptance and insurance authorization: [facility] Dr. Sutton spoke to patient's daughter and informed her that patient was ready for discharge and could travel via car. Daughter informed SW that if patient was accepted, she was planning to come and package pick up patient on 12/24/2009. SW explained to daughter that patient would need to be discharged before then if accepted. Daughter stated she would start making arrangements just in case. Daughter also made SW aware that she had disenrolled patient from Medicare Advantage. Patient will return to traditional Medicare effective 11/29/2019. GWENDOLYN spoke to APS Cisco Engineer, Eugene Hill and informed him of above information. Mr. Hill in agreement. Monse WHITT also made aware. SW will continue to follow up with patient to ensure safe and appropriate disposition.
--- NOTE | 2019-11-18 18:00 | NUR ---
WOUND VAC THIS NURSE ASKEDPT IF SHE WILL CONSENT TO WOUND VAC PLACEMENT AGAIN TO WHICH PT STATED YES. WOUND VAC PLACED TO SACRUM AT CONTINUOUS RATE OF 125
[2019-11-18 20:00] VITALS: BP 126/51
[2019-11-18] MEDS: ATORVASTATIN CALCIUM 20 MG TABLET PO SCH (20:27)
[2019-11-19] VITALS (7 sets, daily range): BP systolic 107–160; BP diastolic 46–92
[2019-11-19] MEDS: MEROPENEM 500 MG VIAL IV SCH ×3 (03:42→18:45)
[2019-11-19] MEDS: NYSTATIN 15 GM POWDER TP SCH (05:00)
[2019-11-19] MEDS: INSULIN HUMULIN R 100 UNIT/ML 3ML SQ SCH ×4 (07:30→20:14)
[2019-11-19] MEDS: METOPROLOL TARTRATE 25 MG TAB PO SCH ×2 (09:00→20:12)
[2019-11-19] MEDS: SPIRONOLACTONE 25 MG TAB PO SCH (09:00)
[2019-11-19] MEDS: DULOXETINE HCL 30 MG CAP PO SCH (09:00)
[2019-11-19] MEDS: GABAPENTIN 100 MG CAPSULE PO SCH ×3 (09:00→20:12)
[2019-11-19] MEDS: ROPINIROLE HCL 1 MG TABLET PO SCH (09:00)
[2019-11-19] MEDS: APIXABAN 5 MG TABLET PO SCH ×2 (09:00→20:12)
[2019-11-19] MEDS: MEMANTINE HCL 5 MG TABLET PO SCH (09:00)
[2019-11-19] MEDS: AMLODIPINE BESYLATE 5 MG TAB PO SCH (09:00)
[2019-11-19] MEDS ORDERED: GUAIFENESIN-DM 200/20 MG 10 ML PO SCH (11:00)
[2019-11-19] MEDS ORDERED: IPRATROPIUM/ALBUTEROL SULFATE 3 ML SOLUTION IH SCH (11:00)
[2019-11-19] MEDS: GUAIFENESIN-DM 200/20 MG 10 ML PO SCH ×3 (11:00→23:00)
[2019-11-19] MEDS: IPRATROPIUM/ALBUTEROL SULFATE 3 ML SOLUTION IH SCH ×3 (12:57→23:29)
[2019-11-19] MEDS: SODIUM CHLORIDE 0.9% 1000ML 1,000 ML IV SCH (14:41)
--- NOTE | 2019-11-19 17:02 | NUR ---
SNF REFERRAL F/U SW received call from Tracy with [facility]. She is waiting to speak to patient's daughter. SW also received a call from Nolan Nation, Bankman for [facility]. She informed SW that they were reviewing records and would submit for authorization from patient's insurance. SW was unable to reach Bankman for [facility] [place]. SW will follow up on 11/20/2019. Patient informed patient and APS Instrumentation And Control Technician of status of referrals. Monse WHITT was also made aware.
--- NOTE | 2019-11-19 17:14 | NUR ---
SNF REFERRALS SW spoke to patient's daughterYuliana regarding status of referrals to SNF in [facility]. Daughter informed SW that she had received a call and/or email from all three facilities that referrals were made. Daughter stated that [facility] had provided her with cost for private pay rooms and did not sound like they were going to submit for insurance authorization. Daughter still plans to come and machine operator hop picker patient once she is accepted and transport her to nursing facility closer to where daughter lives. GWENDOLYN will continue to work with patient and family to ensure safe and appropriate discharge.
[2019-11-19] MEDS: FAMOTIDINE 20MG TAB 20 MG TAB PO SCH (20:12)
[2019-11-19] MEDS: ATORVASTATIN CALCIUM 20 MG TABLET PO SCH (20:12)
[2019-11-19] MEDS: TEMAZEPAM 15 MG CAPSULE PO PRN (20:13)
[2019-11-20] MEDS: MEROPENEM 500 MG VIAL IV SCH ×3 (02:50→20:11)
[2019-11-20 04:00] VITALS: BP 119/46
[2019-11-20] MEDS: GUAIFENESIN-DM 200/20 MG 10 ML PO SCH ×4 (04:00→23:00)
[2019-11-20] MEDS: NYSTATIN 15 GM POWDER TP PRN (04:02)
[2019-11-20] MEDS: NYSTATIN 15 GM POWDER TP SCH (04:03)
[2019-11-20 06:01] LABS: BASOPHILS % (AUTO) 0.8 % (0.0-5.0); EOSINOPHILS % (AUTO) 1.7 % (0.0-8.0); LYMPHOCYTES % (AUTO) 15.9 % (21.0-51.0); MEAN CORPUSCULAR HEMOGLOBIN 27.3 pg (27.0-33.0); MEAN CORPUSCULAR HGB CONC 31.8 g/dL (32.0-36.0); MEAN CORPUSCULAR VOLUME 85.9 fL (79-99); MONOCYTES % (AUTO) 7.6 % (3.0-13.0); NEUTROPHILS % (AUTO) 73.5 % (40.0-77.0); PLATELET COUNT (AUTO) 199 K/uL (130-400); RED BLOOD CELL COUNT(AUTO) 3.84 MIL/uL (4.00-5.50); RED CELL DISTRIBUTION WIDTH 16.7 % (11.0-15.5); WHITE BLOOD COUNT (AUTO) 6.6 K/uL (4.8-10.8)
[2019-11-20 06:18] LABS: ALBUMIN 1.7 g/dL (3.5-5.0); BILIRUBIN,TOTAL 0.5 mg/dL (0.2-1.0); CREATININE 1.4 mg/dL (0.5-1.5); MAGNESIUM 1.3 mg/dL (1.80-2.40); POTASSIUM 3.9 mmol/L (3.5-5.1); TOTAL PROTEIN, SERUM 4.9 g/dL (6.0-8.3)
[2019-11-20] MEDS: INSULIN HUMULIN R 100 UNIT/ML 3ML SQ SCH ×4 (06:21→20:19)
[2019-11-20] MEDS: IPRATROPIUM/ALBUTEROL SULFATE 3 ML SOLUTION IH SCH ×4 (06:40→23:10)
--- NOTE | 2019-11-20 06:45 | NUR ---
ileostomy bag was leaking. New bag was placed with help of Shaye PASTOR. cream applied around abdomen and liza area
[2019-11-20 08:00] VITALS: BP 113/50
[2019-11-20] MEDS: METOPROLOL TARTRATE 25 MG TAB PO SCH ×2 (09:00→20:16)
[2019-11-20] MEDS: MEMANTINE HCL 5 MG TABLET PO SCH (09:00)
[2019-11-20] MEDS: APIXABAN 5 MG TABLET PO SCH ×2 (09:00→20:15)
[2019-11-20] MEDS: FAMOTIDINE 20MG TAB 20 MG TAB PO SCH ×2 (09:00→20:16)
[2019-11-20] MEDS: GABAPENTIN 100 MG CAPSULE PO SCH ×3 (09:00→20:16)
[2019-11-20] MEDS: ROPINIROLE HCL 1 MG TABLET PO SCH (09:00)
[2019-11-20] MEDS: SPIRONOLACTONE 25 MG TAB PO SCH (09:00)
[2019-11-20] MEDS: AMLODIPINE BESYLATE 5 MG TAB PO SCH (09:00)
[2019-11-20] MEDS: DULOXETINE HCL 30 MG CAP PO SCH (09:00)
[2019-11-20 11:50] VITALS: BP 126/55
[2019-11-20] MEDS: SODIUM CHLORIDE 0.9% 1000ML 1,000 ML IV SCH (14:41)
--- NOTE | 2019-11-20 14:58 | NUR ---
SNF Placement SW received a call from Gemma Augustine , Family And Marriage Counsellor for [facility]. She informed SW that patient was medically accepted but had questions regarding financial payment. GWENDOLYN redirected Twyla to patient's daughter. Twyla stated she would follow up with patient's daughter, Yuliana. Twyla later called GWENDOLYN and informed GWENDOLYN that patient's daughter had told her to proceed with admission process. Twyla stated that she was going to submit for insurance authorization for patient and would let SW know when obtained. GWENDOLYN notified JOSE EDUARDO, Monse Moore, and Dr. Sutton of above information. Daughter will come and bean picker machine operator patient and transport her to accepting facility once insurance has approved. SW will continue to follow up.
[2019-11-20 16:00] VITALS: BP 107/55
--- NOTE | 2019-11-20 17:31 | NUR ---
SNF ACCEPTANCE SW received a call from Nolan Nation, Digital Composer for [facility] located on [id number] in [place], [place]. She informed SW that patient was accepted and they had already obtained insurance authorization for patient. SW asked if patient's daughter had been notfied and daughter had not. Ms. Nation was going to reach out to daughter and call SW back. SW contacted patient's daughter, Yuliana Cash, and informed her of patient's acceptance. SW provided her choice of which of the facilities that had accepted she would want patient to go. Daughter called Ms. Nation and discussed financial and then called SW back and informed SW that patient would be going to [facility]. Daughter plans to travel to [facility] this evening and requested that patient be ready for discharge on 11/21/2019 no later than 12 noon. JOSE EDUARDO, Monse Moore, notified. JOSE EDUARDO will notify patient's nurse so that MD can be notified as well. DCP is for 11/21/2019. GWENDOLYN will follow up with SNF and fax [facility].
[2019-11-20 20:00] VITALS: BP 136/61
[2019-11-20] MEDS: MAGNESIUM 2GM PREMIX 50ML 50 ML IV SCH (20:12)
[2019-11-20] MEDS: ATORVASTATIN CALCIUM 20 MG TABLET PO SCH (20:15)
[2019-11-20] MEDS: ACETAMINOPHEN 325 MG TAB PO PRN (20:17)
[2019-11-20] MEDS: TEMAZEPAM 15 MG CAPSULE PO PRN (20:17)
--- NOTE | 2019-11-20 22:00 | NUR ---
Ileostomy bag was leaking again. New bag was placed. Noticeable redness noted around the bag and abdomen. Barrier cream applied. Will monitor closely
[2019-11-20] MEDS: MAGNESIUM OXIDE 400 MG TABLET PO SCH (23:08)
[2019-11-21] VITALS: BP 106/58
--- NOTE | 2019-11-21 01:00 | NUR ---
Ileostomy bag leaking. Bag was changed again. Barrier cream applied around abdomen and bag. Redness Noted.
[2019-11-21] MEDS: MEROPENEM 500 MG VIAL IV SCH ×2 (03:33→11:05)
[2019-11-21 04:00] VITALS: BP 104/57
[2019-11-21] MEDS: GUAIFENESIN-DM 200/20 MG 10 ML PO SCH ×2 (05:00→11:00)
[2019-11-21] MEDS: IPRATROPIUM/ALBUTEROL SULFATE 3 ML SOLUTION IH SCH (06:00)
[2019-11-21 06:09] LABS: BASOPHILS % (AUTO) 0.9 % (0.0-5.0); EOSINOPHILS % (AUTO) 5.6 % (0.0-8.0); HEMATOCRIT 32.7 % (36-48); LYMPHOCYTES % (AUTO) 24.9 % (21.0-51.0); MEAN CORPUSCULAR HEMOGLOBIN 27.2 pg (27.0-33.0); MEAN CORPUSCULAR HGB CONC 31.8 g/dL (32.0-36.0); MEAN CORPUSCULAR VOLUME 85.6 fL (79-99); MONOCYTES % (AUTO) 7.8 % (3.0-13.0); NEUTROPHILS % (AUTO) 60.4 % (40.0-77.0); PLATELET COUNT (AUTO) 197 K/uL (130-400); RED BLOOD CELL COUNT(AUTO) 3.82 MIL/uL (4.00-5.50); RED CELL DISTRIBUTION WIDTH 16.6 % (11.0-15.5); WHITE BLOOD COUNT (AUTO) 5.5 K/uL (4.8-10.8)
[2019-11-21 06:23] LABS: CREATININE 1.3 mg/dL (0.5-1.5); POTASSIUM 4.5 mmol/L (3.5-5.1)
[2019-11-21] MEDS: INSULIN HUMULIN R 100 UNIT/ML 3ML SQ SCH (06:24)
[2019-11-21] MEDS: NYSTATIN 15 GM POWDER TP SCH (06:30)
--- NOTE | 2019-11-21 06:30 | NUR ---
Called pharmacy regarding medication request of nystatin powder. They said they will bring medication zeyad.
[2019-11-21 08:00] VITALS: BP 99/51
[2019-11-21] MEDS: SPIRONOLACTONE 25 MG TAB PO SCH (09:00)
[2019-11-21] MEDS: METOPROLOL TARTRATE 25 MG TAB PO SCH (09:00)
--- NOTE | 2019-11-21 10:11 | NUR ---
DCP SNF MD orders for patient discharge today. Daughter is presently at patient's home gathering belongings. SW spoke to floor nursing staff regarding d/c time in order to inform daughter. Target time will be 11am or before noon. Daughter and patient made aware Daughter will be transporting patient to [facility] SNF in [place], [place], where patient has been accepted. [facility] faxed to facility by SW this morning. GWENDOLYN also spoke to APS Biodiesel Technology Manager, Eugene Hill and updated him on status of discharge. SW will follow up with APS Biodiesel Technology Manager once patient is discharged .JOSE EDUARDO, Monse Moore, aware of above information..
[2019-11-21] MEDS: GABAPENTIN 100 MG CAPSULE PO SCH (11:05)
[2019-11-21] MEDS: APIXABAN 5 MG TABLET PO SCH (11:05)
[2019-11-21] MEDS: MAGNESIUM OXIDE 400 MG TABLET PO SCH (11:05)
[2019-11-21] MEDS: DULOXETINE HCL 30 MG CAP PO SCH (11:06)
[2019-11-21] MEDS: AMLODIPINE BESYLATE 5 MG TAB PO SCH (11:06)
[2019-11-21] MEDS: FAMOTIDINE 20MG TAB 20 MG TAB PO SCH (11:06)
[2019-11-21] MEDS: ROPINIROLE HCL 1 MG TABLET PO SCH (11:06)
[2019-11-21] MEDS: MEMANTINE HCL 5 MG TABLET PO SCH (11:06)
--- NOTE | 2019-11-21 11:50 | NUR ---
PICC line removed by Dylan Stevens NP, charge nurse using aseptic technique, pressure applied, catheter intact and dressing placed to RANDEE using gauze and tape. Wound vac removed, no drainage to chamber. Wound to coccyx cleansed with saline and wet-to-dry dressing applied according to facility protocol. Discharge instructions reviewed, discussed medications that would be resumed at SNF in [place]. Patient verbalized understanding. Daughter arrived to transport patient to [place]. Patient assisted to hospital entrance with assistance x 2 by wheelchair.
== END 2019-11-21 11:59 | DRG 393 ==
LOC: EDH 13:53 → EDHIP 18:10 → 3DH 22:25
PROVIDERS: ADMIT Family Medicine; ATTEND Family Medicine
PROC: 02HV33Z Insertion of Infusion Device into Superior Vena Cava, Percutaneous Approach (ICD-10-PCS; principal; 2019-11-06)
DX: K94.02 Colostomy infection (principal); A41.50 Gram-negative sepsis, unspecified; L89.154 Pressure ulcer of sacral region, stage 4; G93.41 Metabolic encephalopathy; R53.2 Functional quadriplegia; N17.9 Acute kidney failure, unspecified; N39.0 Urinary tract infection, site not specified; L03.311 Cellulitis of abdominal wall; Z16.24 Resistance to multiple antibiotics; E86.0 Dehydration; D64.9 Anemia, unspecified; E11.22 Type 2 diabetes mellitus with diabetic chronic kidney disease; E11.51 Type 2 diabetes mellitus with diabetic peripheral angiopathy without gangrene; E83.42 Hypomagnesemia; E87.5 Hyperkalemia; E87.6 Hypokalemia; G30.9 Alzheimer's disease, unspecified; F02.80 Dementia in other diseases classified elsewhere, unspecified severity, without behavioral disturbance, psychotic disturbance, mood disturbance, and anxiety; F39 Unspecified mood [affective] disorder; F43.20 Adjustment disorder, unspecified; F41.9 Anxiety disorder, unspecified; E11.65 Type 2 diabetes mellitus with hyperglycemia; Y83.3 Surgical operation with formation of external stoma as the cause of abnormal reaction of the patient, or of later complication, without mention of misadventure at the time of the procedure; I12.9 Hypertensive chronic kidney disease with stage 1 through stage 4 chronic kidney disease, or unspecified chronic kidney disease; I25.10 Atherosclerotic heart disease of native coronary artery without angina pectoris; N18.9 Chronic kidney disease, unspecified; Z74.01 Bed confinement status; Z86.19 Personal history of other infectious and parasitic diseases; Z89.512 Acquired absence of left leg below knee; Z95.1 Presence of aortocoronary bypass graft; Z88.0 Allergy status to penicillin; Z91.040 Latex allergy status; Z88.1 Allergy status to other antibiotic agents
CPT/HCPCS: 36415; 71045; 74176; 80048; 80053; 80076; 81001; 82550; 82948; 83605; 83690; 83735; 84484; 85025; 85027; 85610; 85730; 87040; 92610; 93005; 94640; 94664; 97039; A5061; G0378; J0696; J1815; J2060; J2185; J2405; J3475; J3490; J7030